=== PATIENT | female | born 1935 | race African-American/Black ===

== ENCOUNTER 2024-04-09 18:16 | Inpatient (IN) | payer OTHER ==
[~2024-04-09] VITALS: Ht 165.1 cm; Wt 81.0 kg
--- NOTE | 2024-04-09 18:24 | ED.PDOC ---
HPI Comments HPI: PMHx: PSHx: Allergies: Initial Vital Signs: BP: HR: Temp: SpO2: RR: HPI: Poor Historian. 88-year-old female brought in by ambulance from home. Patient was sitting on the toilet and began experiencing some dizziness and shortness of breath without any syncope or collapse. Patient was brought here for further evaluation. In route EMS reports that patient had a short episode of severe bradycardia heart rate in the 20s which lasts a few seconds and resolved spontaneously. They were unable to capture it on their monitor. Patient pulse ox was 100% at room air however she was complaining of shortness of breath and they placed her on supplemental oxygen. Otherwise blood pressure and vital signs were stable. Den ies any fall or trauma. Denies any pain anywhere in her body. Patient dizziness is intermittent. No focal neurological deficits. Past Medcial History: Denies any Past Surgical History: Colonoscopy REVIEW OF SYSTEMS: CONSTITUTIONAL: Denies acute: fever, diaphoresis, chills, HEAD: Denies acute: headache, photophobia Eyes: Denies acute: Double vision, vision loss, eye pain, eye discharge. EARS: Denies acute: tinnitus, hearing loss, ear discharge, ear pain, THROAT: Denies acute: sore throat, swelling, difficulty swallowing , pain with swallowing, change in voice. NECK: Denies acute: neck pain, neck swelling, stiff neck. HEART: Denies acute : chest pain, palpitations, LUNGS: Denies acute: wheezing, cough, hemoptysis ABDOMEN: Denies acute: abdominal pain, Nausea, Vomiting, diarrhea, melena , hematemesis, hematochezia SKIN: Denies acute: rash, redness, lesions, itchiness. EXTREMITIES: Denies acute: calf pain, numbness, tingling, weakness, denies pain in extremity. Denies acute: Low back pain. Neuro: Denies acute: focal neurological deficit, motor or sensory focal neurological deficit, tremors, seizure like activity, confusion, change in mental status, loss of bowel or bladder function, cauda equina like symptoms. : Denies acute: dysuria, hematuria, flank pain, increase in urinary frequency. PSYCH: Denies acute: hallucination, suicidal ideation, homicidal ideation. FEMALE: Denies acute: abnormal vaginal bleeding, foul odor, unusual discharge. PHYSICAL EXAM: General: no acute distress, awake and alert. Head: normocephalic, atraumatic. Neck: supple, trachea is midline, no swelling. Throat: Normal phonation. Eyes:, no erythema, no purulent discharge, no proptosis, no icterus. Heart: regular rate, regular rhythm, no significant murmur appreciated. Lungs: no apparent respiratory distress, Able to speak in full sentences. No wheezing, no rhonchi, no crackles. No stridors Clear to auscultation bilaterally. Abdomen: non tender to palpation, non distended, soft, no guarding, no rebound, + bowel sounds. Neuro: Awake, Alert, oriented to name, self, situation, follows commands GCS=15. Speech is normal. Skin: no petechia, no purpura, no cyanosis, non-pale, not jaundice. Lower extremities: --trace bilateral - Pitting edema no deformity, no focal swelling, no calf TTP. Makes eye contact. moves all four extremities. Face: no apparent facial droop. Ambulating in the ED independently. Time Seen by MD: 18:18 Allergies: Coded Allergies: NO KNOWN ALLERGIES (Unverified , 04/09/24) Information Source: Patient, Emergency Med Personnel Was a procedure done? Was a procedure done?: No CP Differential Dx Differential Diagnosis: Atrial Dysrhythmia, AV Block 1st Degree, AV Block 2nd Degree, AV Block 3rd Degree, Digoxin Toxicity, Electrolyte Disorder, Other (Includes but not limited to thyroid disease, encephalopathy, electrolyte abnormality, sepsis, infection, intracranial pathology, drug adverse effects, arrhythmia, kidney insufficiency, ACS, CVA, malignancy, anemia) X-Ray, Labs, Meds, VS Vital Signs Date Time Temp Pulse Resp B/P (MAP) Pulse Ox O2 Delivery O2 Flow Rate FiO2 04/10/24 01:18 60 16 145/52 (83) 99 04/09/24 19:45 98.0 66 18 169/66 (100) 100 98.0 04/09/24 19:45 66 18 100 Nasal Cannula* 2 28 04/09/24 18:33 22 100 Room Air* 0 21 04/09/24 18:20 97.8 61 22 175/59 (97) 100 Lab Test 04/10/24 00:00 04/09/24 21:42 04/09/24 20:40 04/09/24 19:49 Range/Units Influenza Type A Antigen Negative Negative Influenza Type B Antigen Negative Negative SARS-CoV-2 Antigen (Rapid) Negative NEGATIVE Troponin I High Sensitivity < 3 L < 3 L </=34 ng/L Blood Gas Specimen Type Arterial Blood Gas Sample Site Right radial Blood Gas Patient Temperature 37.0 Arterial Blood Date Drawn [id number] Arterial Blood pH 7.528 H 7.350-7.450 Arterial Blood Partial Pressure CO2 22.0 L 32.0-45.0 mmHg Arterial Blood Partial Pressure O2 91.0 83.0-108.0 mmHg Arterial Blood HCO3 17.9 L 21.0-28.0 mmol/L Arterial Blood Oxygen Saturation 97.2 94.0-98.0 % Arterial Blood Base Excess -3.0 L -2.0-3.0 mmol/L Arterial Blood Oxyhemoglobin 96.2 94.0-98.0 % Arterial Blood Carboxyhemoglobin 0.9 0.5-1.5 % Arterial Blood Methemoglobin 0.1 0.0-1.5 % Carmine Test Yes Blood Gas Total Hemoglobin 12.30 12.0-16.0 g/dL Blood Gas Modality Room air FiO2 % 21.0 Specimen Drawn By Ángela Whitmore 04/09/24 18:48 Range/Units White Blood Count 5.5 4.4-10.8 10^3/uL Red Blood Count 3.76 L 4.0-5.20 10^6/uL Hemoglobin 11.8 L 12.2-16.2 g/dL Hematocrit 35.5 L 36.0-46.0 % Mean Corpuscular Volume 94.3 80.0-100.0 fL Mean Corpuscular Hemoglobin 31.3 28.0-32.0 pg Mean Corpuscular Hemoglobin Concent 33.2 32.0-36.0 g/dL Red Cell Distribution Width 12.7 11.8-14.3 % Platelet Count 275 140-450 10^3/uL Mean Platelet Volume 7.6 6.9-10.8 fL Neutrophils (%) (Auto) 52.7 37.0-80.0 % Lymphocytes (%) (Auto) 40.9 10.0-50.0 % Monocytes (%) (Auto) 4.5 0.0-12.0 % Eosinophils (%) (Auto) 0.8 0.0-7.0 % Basophils (%) (Auto) 1.1 0.0-2.0 % Neutrophils # (Auto) 2.9 1.6-8.6 10 ^3/uL Lymphocytes # (Auto) 2.3 0.4-5.4 10 ^3/uL Monocytes # (Auto) 0.2 0-1.3 10 ^3/uL Eosinophils # (Auto) 0 0-0.8 10 ^3/uL Basophils # (Auto) 0.1 0-0.2 10 ^3/uL Nucleated Red Blood Cells 0.1 % Sodium Level 143 136-145 mmol/L Potassium Level 4.8 3.5-5.1 mmol/L Chloride Level 113 H 98-107 mmol/L Carbon Dioxide Level 21 20-31 mmol/L Anion Gap 9 5-15 Blood Urea Nitrogen 18 9-23 mg/dL Creatinine 0.83 0.550-1.02 mg/dL Glomerular Filtration Rate Calc 68 >90 mL/min BUN/Creatinine Ratio 21.7 H 10.0-20.0 Serum Glucose 93 74-106 mg/dL Lactic Acid Level 2.0 0.4-2.0 mmol/L Calcium Level 10.1 8.7-10.4 mg/dL Total Bilirubin 0.5 0.2-1.0 mg/dL Aspartate Amino Transferase (AST) 11 L 13-40 U/L Alanine Aminotransferase (ALT) 11 7-40 U/L Alkaline Phosphatase 54 46-116 U/L Troponin I High Sensitivity < 3 L </=34 ng/L B-Type Natriuretic Peptide 33.41 0-100 pg/mL Total Protein 5.6 L 5.7-8.2 g/dL Albumin 3.6 3.2-4.8 g/dL Time of 1ST Reevaluation: 18:53 Reevaluation 1ST: Unchanged Time of 2ND Reevaluation: 23:26 ([facility] (HPI, physical exam, labs and diagnostic tests that were available at the time of disposition, ED course, treatment plan) on the phone. They transfer the patient to their service by ALS for further evaluation and treatment. Dr. Sanchez Authorization number is--[id number]) Reevaluation 2ND: Improved Patient Education/Counseling: Diagnosis, Treatment, Prognosis Family Education/Counseling: Diagnosis, Treatment, Prognosis Comments Patient presented with the above HPI.---shortness of breath, dizziness and episode of bradycardia---workup was initiated. patient was found with the above mentioned diagnosis. the following medications were ordered: please refer to order lists of meds and tests obtained by myself Dr. Kirby. Patient ED course and VS have been stabilized. Patient has been reassessed in the ED and remained in a stable condition. Pertinent incidental findings were discussed with the patient and/or family. Patient/family voices understanding and is agreeable with plan. Patient has been observed in the ED adequate length of time to insure improvement/stability. Escalation of care considered: Consideration of escalation to observation or admission Patient was discharged to [facility] per insurance requirement for further evaluation and treatment. All the reports of any imaging studies that were ordered by myself were reviewed by myself. Departure 1 Departure Time of Disposition: 20:22 Impression: Primary Impression: Bradycardia with less than 30 beats per minute Additional Impressions: Dizziness Dyspnea Disposition: ADMITTED INPATIENT Admit to: [facility] Condition: Guarded Discharged With: Self Critical Care Note Critical Care Time?: No Heart Score Heart Score: Heart Score Response (Comments) Value History Slightly Suspicious 0 EKG Normal 0 Age >65 2 Risk Factors No known risk factors 0 Troponin Normal limit 0 Total 2 I personally scribed for ORESTES KIRBY DO ([email or web address]) on 04/09/24 at 18:24. Electronically submitted by Ifeanyi Lin ([email or web address]). ORESTES KIRBY DO Apr 09, 2024 18:24
--- NOTE | 2024-04-09 18:45 | DVH ---
EXAM: XR Chest, 1 View CLINICAL INDICATION: sob/dizzy TECHNIQUE: Frontal view of the chest. COMPARISON: None FINDINGS: LUNGS AND PLEURAL SPACES: Unremarkable. No consolidation. No pneumothorax. HEART: Unremarkable. No cardiomegaly. MEDIASTINUM: Unremarkable. Normal mediastinal contour. BONES/JOINTS: Unremarkable. No acute fracture. OTHER FINDINGS: . None. . IMPRESSION: No acute cardiopulmonary process.
[2024-04-09 19:06] LABS: Basophils # (auto) 0.1 10 ^3/uL (0-0.2); Basophils % (auto) 1.1 % (0.0-2.0); Eosinophils # (auto) 0 10 ^3/uL (0-0.8); Eosinophils % (auto) 0.8 % (0.0-7.0); Hematocrit 35.5 % (36.0-46.0); Hemoglobin 11.8 g/dL (12.2-16.2); Lymphocytes # (auto) 2.3 10 ^3/uL (0.4-5.4); Lymphocytes % (auto) 40.9 % (10.0-50.0); Mean Corpuscular Hemoglobin 31.3 pg (28.0-32.0); Mean Corpuscular Hgb Conc. 33.2 g/dL (32.0-36.0); Mean Corpuscular Volume 94.3 fL (80.0-100.0); Monocytes # (auto) 0.2 10 ^3/uL (0-1.3); Monocytes % (auto) 4.5 % (0.0-12.0); Neutrophils # (auto) 2.9 10 ^3/uL (1.6-8.6); Neutrophils % (auto) 52.7 % (37.0-80.0); Nucleated Red Blood Cells % 0.1 %; Platelet Count (auto) 275 10^3/uL (140-450); Red Blood Cells 3.76 10^6/uL (4.0-5.20); Red Cell Distribution Width 12.7 % (11.8-14.3); White Blood Cell 5.5 10^3/uL (4.4-10.8)
[2024-04-09 19:25] LABS: Alanine Aminotransferase 11 U/L (7-40); Albumin 3.6 g/dL (3.2-4.8); Alkaline Phosphatase 54 U/L (46-116); Anion Gap 9 (5-15); BUN/Creatinine Ratio 21.7 (10.0-20.0); Blood Urea Nitrogen 18 mg/dL (9-23); Calcium 10.1 mg/dL (8.7-10.4); Carbon Dioxide 21 mmol/L (20-31); Glucose 93 mg/dL (74-106); Potassium 4.8 mmol/L (3.5-5.1); Sodium 143 mmol/L (136-145)
[2024-04-09 19:26] LABS: Bilirubin, Total 0.5 mg/dL (0.2-1.0)
[2024-04-09 19:30] LABS: Aspartate Aminotransferase 11 U/L (13-40); Chloride 113 mmol/L (98-107); Total Protein 5.6 g/dL (5.7-8.2)
[2024-04-09 19:45] VITALS: PULSE 66; RESP 18; TEMP 98; O2SAT 100
[2024-04-10 01:03] LABS: COVID19 ANTIGEN SOFIA FIA NEGATIVE (NEGATIVE); Rapid Influenza A Negative (Negative); Rapid Influenza B Negative (Negative)
--- NOTE | 2024-04-10 07:05 | DVHHP2 ---
Admitting Diagnosis: bradycardia History of Present Illness 0. Poor Historian. 88-year-old female brought in by ambulance from home. Patient was sitting on the toilet and began experiencing some dizziness and shortness of breath without any syncope or collapse. Patient was brought here for further evaluation. In route EMS reports that patient had a short episode of severe bradycardia heart rate in the 20s which lasts a few seconds and resolved spontaneously. They were unable to capture it on their monitor. Patient pulse ox was 100% at room air however she was complaining of shortness of breath and they placed her on supplemental oxygen. Otherwise blood pressure and vital signs were stable. Denies any fall or trauma. Denies any pain anywhere in her body. Patient dizziness is intermittent. No focal neurological deficits. Past Medcial History: Denies any Past Surgical History: Colonoscopy REVIEW OF SYSTEMS: CONSTITUTIONAL: Denies acute: fever, diaphoresis, chills, HEAD: Denies acute: headache, photophobia Eyes: Denies acute: Double vision, vision loss, eye pain, eye discharge. EARS: Denies acute: tinnitus, hearing loss, ear discharge, ear pain, THROAT: Denies acute: sore throat, swelling, difficulty swallowing , pain with swallowing, change in voice. NECK: Denies acute: neck pain, neck swelling, stiff neck. HEART: Denies acute : chest pain, palpitations, LUNGS: Denies acute: wheezing, cough, hemoptysis ABDOMEN: Denies acute: abdominal pain, Nausea, Vomiting, diarrhea, melena , hematemesis, hematochezia SKIN: Denies acute: rash, redness, lesions, itchiness. EXTREMITIES: Denies acute: calf pain, numbness, tingling, weakness, denies pain in extremity. Denies acute: Low back pain. Neuro: Denies acute: focal neurological deficit, motor or sensory focal neurological deficit, tremors, seizure like activity, confusion, change in mental status, loss of bowel or bladder function, cauda equina like symptoms. : Denies acute: dysuria, hematuria, flank pain, increase in urinary frequency. PSYCH: Denies acute: hallucination, suicidal ideation, homicidal ideation. FEMALE: Denies acute: abnormal vaginal bleeding, foul odor, unusual discharge. Allergies: Coded Allergies: NO KNOWN ALLERGIES (Unverified , 04/09/24) Current Medications Current Medications Medications (Trade) Dose Ordered Sig/Edgar Route PRN Reason Start Time Stop Time Status Last Admin Docusate Sodium (Colace Capsule) 100 mg BIDPRN PRN PO FOR CONSTIPATION 04/10/24 08:15 Acetaminophen (Tylenol Tablet) 650 mg Q6HP PRN PO PAIN SCALE 1-3 OR TEMP>100.4 04/10/24 08:15 Ondansetron HCl (Zofran) 4 mg Q4HP PRN IV NAUSEA / VOMITING 04/10/24 08:15 Enoxaparin Sodium (Lovenox) 40 mg DAILY SC 04/10/24 10:00 Vital Signs Vital Signs Date Time Temp Pulse Resp B/P (MAP) Pulse Ox O2 Delivery O2 Flow Rate FiO2 04/10/24 06:40 59 16 141/48 (79) 94 04/10/24 01:18 Room Air* 0 21 04/09/24 19:45 98.0 98.0 Physical Exam Generally-88 years old woman, asleep, arousal to verbal. No apparent distress HEENT-atraumatic normocephalic Heart-regular rate and rhythm Lungs clear to auscultate bilaterally Abdomen soft nontender nondistended distended positive bowel sounds Musculoskeletal-no edema cyanosis Neuro-Asleep, arousal to verbal, follow commands. No focal deficit Results Labs Test 04/10/24 00:00 04/09/24 21:42 04/09/24 20:40 04/09/24 18:48 Range/Units Influenza Type A Antigen Negative Negative Influenza Type B Antigen Negative Negative SARS-CoV-2 Antigen (Rapid) Negative NEGATIVE Troponin I High Sensitivity < 3 L </=34 ng/L Blood Gas Specimen Type Arterial Blood Gas Sample Site Right radial Blood Gas Patient Temperature 37.0 Arterial Blood Date Drawn [id number] Arterial Blood pH 7.528 H 7.350-7.450 Arterial Blood Partial Pressure CO2 22.0 L 32.0-45.0 mmHg Arterial Blood Partial Pressure O2 91.0 83.0-108.0 mmHg Arterial Blood HCO3 17.9 L 21.0-28.0 mmol/L Arterial Blood Oxygen Saturation 97.2 94.0-98.0 % Arterial Blood Base Excess -3.0 L -2.0-3.0 mmol/L Arterial Blood Oxyhemoglobin 96.2 94.0-98.0 % Arterial Blood Carboxyhemoglobin 0.9 0.5-1.5 % Arterial Blood Methemoglobin 0.1 0.0-1.5 % Carmine Test Yes Blood Gas Total Hemoglobin 12.30 12.0-16.0 g/dL Blood Gas Modality Room air FiO2 % 21.0 Specimen Drawn By Ángela garcia White Blood Count 5.5 4.4-10.8 10^3/uL Red Blood Count 3.76 L 4.0-5.20 10^6/uL Hemoglobin 11.8 L 12.2-16.2 g/dL Hematocrit 35.5 L 36.0-46.0 % Mean Corpuscular Volume 94.3 80.0-100.0 fL Mean Corpuscular Hemoglobin 31.3 28.0-32.0 pg Mean Corpuscular Hemoglobin Concent 33.2 32.0-36.0 g/dL Red Cell Distribution Width 12.7 11.8-14.3 % Platelet Count 275 140-450 10^3/uL Mean Platelet Volume 7.6 6.9-10.8 fL Neutrophils (%) (Auto) 52.7 37.0-80.0 % Lymphocytes (%) (Auto) 40.9 10.0-50.0 % Monocytes (%) (Auto) 4.5 0.0-12.0 % Eosinophils (%) (Auto) 0.8 0.0-7.0 % Basophils (%) (Auto) 1.1 0.0-2.0 % Neutrophils # (Auto) 2.9 1.6-8.6 10 ^3/uL Lymphocytes # (Auto) 2.3 0.4-5.4 10 ^3/uL Monocytes # (Auto) 0.2 0-1.3 10 ^3/uL Eosinophils # (Auto) 0 0-0.8 10 ^3/uL Basophils # (Auto) 0.1 0-0.2 10 ^3/uL Nucleated Red Blood Cells 0.1 % Sodium Level 143 136-145 mmol/L Potassium Level 4.8 3.5-5.1 mmol/L Chloride Level 113 H 98-107 mmol/L Carbon Dioxide Level 21 20-31 mmol/L Anion Gap 9 5-15 Blood Urea Nitrogen 18 9-23 mg/dL Creatinine 0.83 0.550-1.02 mg/dL Glomerular Filtration Rate Calc 68 >90 mL/min BUN/Creatinine Ratio 21.7 H 10.0-20.0 Serum Glucose 93 74-106 mg/dL Lactic Acid Level 2.0 0.4-2.0 mmol/L Calcium Level 10.1 8.7-10.4 mg/dL Total Bilirubin 0.5 0.2-1.0 mg/dL Aspartate Amino Transferase (AST) 11 L 13-40 U/L Alanine Aminotransferase (ALT) 11 7-40 U/L Alkaline Phosphatase 54 46-116 U/L B-Type Natriuretic Peptide 33.41 0-100 pg/mL Total Protein 5.6 L 5.7-8.2 g/dL Albumin 3.6 3.2-4.8 g/dL Primary Diagnosis Symptomatic Bradycardia resolved Plan Patient was bradycardia 20 30s when EMS seen the patient. In ED patient's heart rate has been 60s. Check TSH, T4 Check echo of the heart Cardiology consult Does not recall home meds. Neutrophilic medication reconciliation a.m. Hold off any beta blockers, calcium channel harper tacking cause slow abdominal heart rate Check monitoring tech for dizziness telemetry Full code Cardiac diet Lovenox for DVT prophylaxis PPI for GI prophylaxis Plan discussed with: Patient Problems List: (1) Bradycardia with less than 30 beats per minute Status: Acute (2) Dyspnea Status: Acute (3) Dizziness Status: Acute Date of Service: Apr 10, 2024 Billing Provider: JOSIE BETTS MD Common Visit Codes: [id number] INP/OBS CARE (HIGH) DIONISIO BETTS MD Apr 10, 2024 07:05
[2024-04-10] MEDS ORDERED: ONDANSETRON HCL 4 MG/2 ML VIAL IV PRN (08:15)
[2024-04-10] MEDS ORDERED: DOCUSATE SOD 100 MG CAP PO PRN (08:15)
[2024-04-10] MEDS ORDERED: ACETAMINOPHEN 325 MG TAB PO PRN (08:15)
[2024-04-10] MEDS: ENOXAPARIN SOD 40 MG/0.4 ML SYRINGE SC SCH (10:00)
[2024-04-10 10:30] VITALS: BP 129/41; PULSE 60; RESP 14; O2SAT 96
[2024-04-10 10:32] LABS: Urine Bacteria FEW /hpf (None Seen); Urine Blood Negative /uL (Negative); Urine Clarity Turbid (Clear); Urine Color Yellow (Yellow); Urine Mucus FEW (None Seen); Urine Protein, UAD TRACE (Negative); Urine Specific Gravity 1.031 (1.001-1.035); Urine Squamous Epithelial Cell MOD /hpf (<5); Urine Urobilinogen Normal (Negative); Urine WBC 108 /HPF (0-5); Urine pH 5.5 (5.0-9.0)
--- NOTE | 2024-04-10 10:53 | DVHSR ---
APPROVED REPORT EXAM: Two-dimensional and M-mode echocardiogram with Doppler and color Doppler. Blood Pressure: 141/48 mmHg INDICATION Bradycardia RISK FACTORS Height: 5'5", Weight: 178 DIMENSIONS LVDd4.6 (3.8-5.7cm)LA (2D)3.3 (1.9-4.0cm)Aortic Root2.5 (2.0-3.7cm) LVDs2.5 (2.5-4.0cm)LA (MM) (1.9-4.0cm)Aortic Cusp Exc1.3 (1.5-2.0cm) EF (%) 70.0 (55-70%)Rt. Atrium3.2 (1.9-4.0cm)Asc. Aorta cm IVSd0.9 (0.7-1.1cm)RV (D) (1.8-2.4cm) PWd0.8 (0.7-1.1cm) Mitral Valve MitralMitral Stenosis E wave0.62m/sMV Mean GR.mmHg A wave1.17m/sMV Peak GR.mmHg E/A ratio0.52D MVAcm2 DECEL [id number] 1/2 Timems Aortic Valve Aortic ValveAortic Stenosis V10.83m/Lino Mean GR.4mmHg V21.35m/Lino Peak GR.7mmHg LVOT Diameter2.0 (1.8-2.4cm)Doppler AVA1.93cm2 Pulmonic Valve V20.95m/s Tricuspid Valve TR Velocity2.99m/s [id number] LEFT VENTRICLE The left ventricle is of normal size. Wall thickness is normal. Ejection fraction is normal and is estimated at 65-70%. There is no gross wall motion abnormalities. There is impaired relaxation of t he left ventricle. E to E prime ratio is in the normal range. RIGHT VENTRICLE The right ventricle is of normal size. Systolic function is normal. ATRIA The left atrium is mildly dilated in size. Right atrium is of normal size. Intra-atrial septum is l ikely normal. MITRAL VALVE There is mild mitral annular calcification. No significant regurgitation or stenosis. PULMONIC VALVE Likely normal. TRICUSPID VALVE Normal structure and function. There is mild tricuspid regurgitation. PA systolic pressure is estim ated at 40-45 mm Hg. AORTIC VALVE The aortic valve leaflets are mildly calcified. No significant stenosis or regurgitation. GREAT VESSELS The aortic root is of normal size. Proximal ascending aorta isn't well visualized. PERICARDIAL EFFUSION No significant pericardial effusion. IVC is not visualized. Other Information Quality : Technically LimitedRhythm : Technically limited study due to body habitus. Conclusion Normal left ventricular size and systolic function. Ejection fraction is estimated at 65-70%. Impaired relaxation of the left ventricle. Mildly dilated left atrial chamber size. Normal right ventricular size and systolic function. Mildly calcified aortic valve. No hemodynamically significant valvular disease. PA systolic pressure is estimated at 40-45 mm Hg. No significant pericardial effusion.
--- NOTE | 2024-04-10 11:51 | DVHINCON2 ---
Date Seen: Apr 10, 2024 Referring Physician MD Ronaldo Reason for Consultation Symptomatic bradycardia History of Present Illness This is an 88-year-old female patient who presents to the emergency room with chief complaint of near syncopal episode. The patient reports that she was having a bowel movement at home when suddenly began to feel dizziness. She reports that she felt as though she was going to "pass out", so she decided to call her granddaughter right away. She states that the call cut off, so she decided to call emergency medical services. According to ER physician notes, EMS reported that en route, the patient had an episode of bradycardia in which her heart rate dropped as low as 20s, and spontaneously resolved. No cardiac strips provided or available to confirm this. There was no initial twelve lead electrocardiogram found in the patient's chart. A twelve lead electrocardiogram was obtained at the time of assessment and reveals normal sinus rhythm with first-degree AV block. She denies any cardiac symptoms. Serial troponin levels have been negative. Significant past medical history includes prediabetes, anemia, and obesity. Patient reports that she had a recent echocardiogram within the [facility] and was told it was normal. 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 Past Medical History Past medical history reviewed. No other significant than mentioned above. Past Surgical History Denies all previous surgeries Family History Family history reviewed. Social History Denies the use of tobacco, alcohol or illicit drugs. Allergies: Coded Allergies: NO KNOWN ALLERGIES (Unverified , 04/09/24) Home Meds Home medications reviewed. Current Medications Current Medications Medications (Trade) Dose Ordered Sig/Edgar Route PRN Reason Start Time Stop Time Status Last Admin Docusate Sodium (Colace Capsule) 100 mg BIDPRN PRN PO FOR CONSTIPATION 04/10/24 08:15 Acetaminophen (Tylenol Tablet) 650 mg Q6HP PRN PO PAIN SCALE 1-3 OR TEMP>100.4 04/10/24 08:15 Ondansetron HCl (Zofran) 4 mg Q4HP PRN IV NAUSEA / VOMITING 04/10/24 08:15 Hold Enoxaparin Sodium (Lovenox) 40 mg DAILY SC 04/10/24 10:00 Review of Systems Constitutional: No symptom reported Ears, Nose, & Throat: No symptom reported Eyes: No symptom reported Neurological: Syncope Pulmonary/Respiratory: No symptoms reported Cardiovascular: No symptom reported Gastrointestinal: No symptom reported Genitourinary: No symptom reported Musculoskeletal: No symptom reported Skin: No symptom reported Psychiatric: No symptom reported Endocrine: No symptom reported Hematologic/Lymphatic: No symptom reported Vital Signs Vital Signs Date Time Temp Pulse Resp B/P (MAP) Pulse Ox O2 Delivery O2 Flow Rate FiO2 04/10/24 10:30 60 14 129/41 (70) 96 04/10/24 01:18 Room Air* 0 21 04/09/24 19:45 98.0 98.0 Physical Exam General Appearance: Cooperative. Obese Pulmonary/Respiratory: Clear, bilateral breaths sounds. Cardiovascular/Chest: Regular rate and rhythm. Peripheral Pulses: 2+ Radial (R). 2+ Radial (L). 2+ Pedal (R). 2+ Pedal (L) Abdominal Exam: Normal bowel sounds. Ankle Exam: Negative ankle edema Lower extremities: Negative lower extremity edema Neuro/Mental Status: A/OX4, coherent. Thoughts/Psych: Normal thought pattern. Appropriate mood and affect. Good judgment and insight. Appearance: No acute distress. Skin Exam: Normal inspection. Normal color. Warm and dry. Labs/Diagnostic Data Labs Test 04/10/24 08:50 04/10/24 08:14 04/10/24 00:00 04/09/24 21:42 Range/Units Urine Color Yellow Yellow Urine Clarity Turbid H Clear Urine pH 5.5 5.0-9.0 Urine Specific [place] 1.031 1.001-1.035 Urine Protein Trace H Negative Urine Ketones 1+ H Negative Urine Blood Negative Negative /uL Urine Nitrite Negative Negative Urine Bilirubin Negative Negative Urine Urobilinogen Normal Negative mg/dL Urine Leukocyte Esterase 3+ Negative /uL Urine RBC 13 0 - 4 /hpf Urine Microscopic WBC 108 H 0-5 /HPF Urine Squamous Epithelial Cells Mod <5 /hpf Urine Bacteria Few H None Seen /hpf Urine Mucus Few None Seen Urine Glucose Normal Normal mg/dL Thyroid Stimulating Hormone (TSH) 1.83 0.55-4.78 uIU/mL Free Thyroxine (T4) Calculated 1.06 0.89-1.76 ng/dL Influenza Type A Antigen Negative Negative Influenza Type B Antigen Negative Negative SARS-CoV-2 Antigen (Rapid) Negative NEGATIVE Troponin I High Sensitivity < 3 L </=34 ng/L Test 04/09/24 20:40 04/09/24 18:48 Range/Units Blood Gas Specimen Type Arterial Blood Gas Sample Site Right radial Blood Gas Patient Temperature 37.0 Arterial Blood Date Drawn [id number] Arterial Blood pH 7.528 H 7.350-7.450 Arterial Blood Partial Pressure CO2 22.0 L 32.0-45.0 mmHg Arterial Blood Partial Pressure O2 91.0 83.0-108.0 mmHg Arterial Blood HCO3 17.9 L 21.0-28.0 mmol/L Arterial Blood Oxygen Saturation 97.2 94.0-98.0 % Arterial Blood Base Excess -3.0 L -2.0-3.0 mmol/L Arterial Blood Oxyhemoglobin 96.2 94.0-98.0 % Arterial Blood Carboxyhemoglobin 0.9 0.5-1.5 % Arterial Blood Methemoglobin 0.1 0.0-1.5 % Carmine Test Yes Blood Gas Total Hemoglobin 12.30 12.0-16.0 g/dL Blood Gas Modality Room air FiO2 % 21.0 Specimen Drawn By Ángela garcia White Blood Count 5.5 4.4-10.8 10^3/uL Red Blood Count 3.76 L 4.0-5.20 10^6/uL Hemoglobin 11.8 L 12.2-16.2 g/dL Hematocrit 35.5 L 36.0-46.0 % Mean Corpuscular Volume 94.3 80.0-100.0 fL Mean Corpuscular Hemoglobin 31.3 28.0-32.0 pg Mean Corpuscular Hemoglobin Concent 33.2 32.0-36.0 g/dL Red Cell Distribution Width 12.7 11.8-14.3 % Platelet Count 275 140-450 10^3/uL Mean Platelet Volume 7.6 6.9-10.8 fL Neutrophils (%) (Auto) 52.7 37.0-80.0 % Lymphocytes (%) (Auto) 40.9 10.0-50.0 % Monocytes (%) (Auto) 4.5 0.0-12.0 % Eosinophils (%) (Auto) 0.8 0.0-7.0 % Basophils (%) (Auto) 1.1 0.0-2.0 % Neutrophils # (Auto) 2.9 1.6-8.6 10 ^3/uL Lymphocytes # (Auto) 2.3 0.4-5.4 10 ^3/uL Monocytes # (Auto) 0.2 0-1.3 10 ^3/uL Eosinophils # (Auto) 0 0-0.8 10 ^3/uL Basophils # (Auto) 0.1 0-0.2 10 ^3/uL Nucleated Red Blood Cells 0.1 % Sodium Level 143 136-145 mmol/L Potassium Level 4.8 3.5-5.1 mmol/L Chloride Level 113 H 98-107 mmol/L Carbon Dioxide Level 21 20-31 mmol/L Anion Gap 9 5-15 Blood Urea Nitrogen 18 9-23 mg/dL Creatinine 0.83 0.550-1.02 mg/dL Glomerular Filtration Rate Calc 68 >90 mL/min BUN/Creatinine Ratio 21.7 H 10.0-20.0 Serum Glucose 93 74-106 mg/dL Lactic Acid Level 2.0 0.4-2.0 mmol/L Calcium Level 10.1 8.7-10.4 mg/dL Total Bilirubin 0.5 0.2-1.0 mg/dL Aspartate Amino Transferase (AST) 11 L 13-40 U/L Alanine Aminotransferase (ALT) 11 7-40 U/L Alkaline Phosphatase 54 46-116 U/L B-Type Natriuretic Peptide 33.41 0-100 pg/mL Total Protein 5.6 L 5.7-8.2 g/dL Albumin 3.6 3.2-4.8 g/dL Assessment Syncope, rule out cardiac etiology Sinus rhythm with first-degree atrioventricular block, rule out high-degree AV block Prediabetes Pulmonary hypertension History of anemia Obesity Plan/Recommendation We will continue following plan/recommendations (Dr. Noguera): * A transthoracic echocardiogram reveals EF 65-70%, RVSP 40-45 mmHg * Bilateral carotid ultrasound * Orthostatic vital signs * Cardiac surveillance Patient seen and examined at bedside with . At the time of assessment, cardiac nurse specialist reviewed, no evidence of pauses or high-degree atrioventricular blocks identified on monitor. We will continue to monitor closely. Thank you for allowing us to care for this patient. Please call with any questions or concerns. Critical care time spent: 40 minutes This medical document was created using an electronic medical record system with voice recognition software and computerized dictation system. Although this document has been carefully reviewed, there might still be some phonetic and typographical errors. Occasional wrong-word or ``sound-alike substitutions may have occurred due to the inherent limitations of voice recognition software. These areas are purely typographical due to imperfections of the software programs and do not reflect any compromise in the patient's medical care. Please read the chart carefully and recognize, using context, where these substitutions have occurred. Plan discussed with: Patient NYHA Physical activity limitations: NA Date of Service: Apr 10, 2024 Billing Provider: SHALINI NOGUERA MD Cardiology Common Codes: 24073-OPWNEIJ INP/OBS CARE (High) Cardiology Consultation Codes: 86170-[id number] CONSULT <45MIN GEOVANNI KAPLAN Apr 10, 2024 11:51
--- NOTE | 2024-04-14 12:42 | ECG ---
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
== END 2024-04-10 12:44 | disposition left against medical advice (07) | DRG 310 ==
LOC: EDBD 18:16 → ER 18:16 → TELE 04-10 08:02
PROVIDERS: ADMIT Internal Medicine; ATTEND Internal Medicine
DX: I44.0 Atrioventricular block, first degree (principal); R73.03 Prediabetes; Z53.29 Procedure and treatment not carried out because of patient's decision for other reasons; Z20.822 Contact with and (suspected) exposure to COVID-19; I27.20 Pulmonary hypertension, unspecified; E66.9 Obesity, unspecified; Z68.29 Body mass index [BMI] 29.0-29.9, adult; Z79.899 Other long term (current) drug therapy
CPT/HCPCS: 36415; 36600; 71045; 80053; 81001; 82805; 83605; 83880; 84439; 84443; 84484; 85025; 87426; 87804; 93306; G0378